=== PATIENT | female | born 1940 | race American Indian/Alaskan Native ===

== ENCOUNTER 2017-04-02 10:31 | Outpatient (CLI) | payer MEDICARE ==
--- NOTE | 2017-04-02 10:56 | XRay Report ---
Chest 2 views: History: Cough. Findings: Normal cardiomediastinal silhouette the trachea is midline. Circumscribed 6 cm mass identified at the posterior segment left upper lobe. No pleural effusion or pneumothorax. Impression: Circumscribed mass left upper lobe, pneumonia or neoplasm.
== END 2017-04-02 10:32 | disposition home or self-care (01) ==
LOC: SPVIMAG 10:31
DX: R91.8 Other nonspecific abnormal finding of lung field (principal); R05 Cough
CPT/HCPCS: 71020

== ENCOUNTER 2018-01-14 10:07 | Outpatient (CLI) | payer MEDICARE ==
--- NOTE | 2018-01-18 15:07 | Vascular Lab Report ---
Right Lower Extremity Venous Duplex Study: Reason for Exam: Pain and swelling of the right lower extremity. Comments on the Right: Extensive acute deep venous thrombosis is seen. Thrombus is seen in the common femoral vein, deep femoral vein, superficial femoral vein, popliteal vein, the tibial veins, and the proximal greater saphenous vein. The remaining veins visualized are freely compressible without evidence of internal echogenicity. Spontaneous and phasic flow is absent proximally. Comments on the Left: A limited duplex study was done of the proximal veins of the left lower extremity. All veins visualized are freely compressible without evidence of internal echogenicity. Flow is spontaneous and phasic throughout. No evidence of acute or chronic thrombus is seen in any of the vessels visualized. Impression: Extensive acute deep venous thrombosis of the right lower extremity.
== END 2018-01-14 10:08 | disposition home or self-care (01) ==
LOC: VAS 10:07
DX: I82.401 Acute embolism and thrombosis of unspecified deep veins of right lower extremity (principal)